=== PATIENT | male | born 2000 | race Caucasian/White ===

== ENCOUNTER 2018-11-28 15:37 | Emergency (ER) | payer SELFPAY ==
[~2018-11-28] VITALS: Ht 172.7 cm; Wt 79.8 kg
[2018-11-28 15:45] VITALS: Ht 172.7 cm; Wt 79.8 kg
[2018-11-28] MEDS ORDERED: HYDROCODONE/APAP (5/325) TAB PO ONE (16:30)
[2018-11-28] MEDS ORDERED: DIPHTH/TET/ACEL PERTUSS (ADULT) 0.5 ML VIAL IM* ONE (16:30)
[2018-11-28] MEDS ORDERED: IBUP-1542 PO (18:04)
[2018-11-28] MEDS ORDERED: CEPH-443 PO (18:04)
[2018-11-28 18:52] VITALS: BP 120/65; PULSE 96; RESP 20
--- NOTE | 2018-11-28 19:09 | ERD ---
ER Documentation Chief Complaint Chief Complaint L thumb laceration at work; bleeding noted and controlled HPI 16-year-old male patient with no significant past medical history presents to ED complaining of a left thumb laceration that occurred at work. Reports that he is right-handed. States that he was working with a skill saw. Denies any fever, chills, nausea, vomiting, sensation, loss of range of motion. Denies any other injuries. ROS All systems reviewed and are negative except as per history of present illness. Medications Home Meds Active Scripts Ibuprofen* (Motrin*) 600 Mg Tab, 600 MG PO Q6, #30 TAB Prov:CARL DINH PA-C 11/28/18 Cephalexin* (Keflex*) 500 Mg Capsule, 500 MG PO QID for 7 Days, CAP Prov:CARL DINH PA-C 11/28/18 Allergies Allergies: Coded Allergies: No Known Allergy (Unverified , 11/28/18) PMhx/Soc Medical and Surgical Hx: pt denies Medical Hx, pt denies Surgical Hx Hx Alcohol Use: No Hx Substance Use: No Hx Tobacco Use: Yes Smoking Status: Current every day smoker FmHx Family History: No diabetes, No coronary disease Physical Exam Vitals Vital Signs Date Temp Pulse Resp B/P (MAP) Pulse Ox O2 O2 Flow FiO2 Time Delivery Rate 11/28/18 98.1 96 20 120/65 98 Room Air 18:52 (83) 11/28/18 98.5 63 20 133/79 97 15:45 (97) Physical Exam Const: Hcs-yrd-rantayihu, well-nourished. In no acute distress. Head: Atraumatic, normocephalic Eyes: Normal Conjunctiva without injection ENT: Normal external ear, nose and mouth. Neck: Full range of motion. No meningismus. Resp: Clear to auscultation bilaterally. No wheezing, rhonchi, rales, or crackles. No accessory muscle use. No retractions. Cardio: Regular rate and rhythm, no murmurs Skin: No petechiae or rashes Back: No midline tenderness. No CVA tenderness. Ext: No cyanosis, or edema. Cap refill less than 2 seconds. Distal pulses intact bilaterally. Superficial laceration irregularly shaped noted of the IP joint of patient's left thumb. Full range of motion of the DIP, PIP, MCP joints bilaterally. Minimal bleeding noted. No visualization of any foreign bodies or tendons. Neur: Awake and alert. Normal gait and coordination. Muscle strength 5/5. Sensation intact bilaterally. Psych: Normal Mood and Affect Results 24 hrs Current Medications Medications Dose Sig/Ashu Start Time Status Last (Trade) Ordered Route PRN Stop Time Admin Dose Reason Admin 1 tab ONCE ONCE 11/28/18 DC 11/28/18 Acetaminophen PO 16:30 16:36 / 11/28/18 16:31 Hydrocodone Bitart ([place] (5/325)) Diphtheria/ 0.5 ml ONCE ONCE 11/28/18 DC 11/28/18 Tetanus/Acell IM* 16:30 16:37 Pertussis 11/28/18 16:31 (Adacel) Procedures/MDM 16-year-old male patient with no significant a past medical history presents to ED complaining of a left thumb laceration. Patient is afebrile and nontoxic- appearing. Tdap is updated here in the ED peer patient was given [place] 5-325 mg here in the ED with improvement of his pain. Patient gave consent to perform laceration repair. Laceration Repair by me: Anesthesia: None Location: [Left] Tendon/Joint/Nerves: No injury Foreign body: None detected after copious irrigation and exploration Technique: None Complexity: No subcutaneous sutures/mucosal repair/edge excision Post Closure Length: [3] cm Patient's bleeding was easily controlled in the department and there is no indication of anemia. Patient is neurovascularly intact. No evidence of compartment syndrome, neurologic injury, vascular injury, open joint, tendon laceration, or foreign body. Patient is appropriate for outpatient follow up. 48 hour wound check. Scar minimization instructions given. Instructed patient to return for suture removal in 7-10 days. Keflex was prescribed to patient for infection prevention. Instructed patient to return to the ED sooner for any worsening symptoms. Follow up with primary care physician in 1-2 days. Patient's questions were answered. Patient understood and agreed with discharge plan. Departure Diagnosis: Primary Impression: Thumb laceration Encounter type: initial encounter Damage to nail status: unspecified Foreign body presence: unspecified Laterality: left Qualified Codes: S61.012A - Laceration without foreign body of left thumb without damage to nail, initial encounter Condition: Stable Patient Instructions: Laceration, Hand Referrals: [facility] YOU HAVE RECEIVED A MEDICAL SCREENING EXAM AND THE RESULTS INDICATE THAT YOU DO NOT HAVE A CONDITION THAT REQUIRES URGENT TREATMENT IN THE EMERGENCY DEPARTMENT. FURTHER EVALUATION AND TREATMENT OF YOUR CONDITION CAN WAIT UNTIL YOU ARE SEEN IN YOUR DOCTORS OFFICE WITHIN THE NEXT 1-2 DAYS. IT IS YOUR RESPONSIBILITY TO MAKE AN APPOINTMENT FOR FOLOW-UP CARE. IF YOU HAVE A PRIMARY DOCTOR --you should call your primary doctor and schedule an appointment IF YOU DO NOT HAVE A PRIMARY DOCTOR YOU CAN CALL OUR PHYSICIAN REFERRAL HOTLINE AT IF YOU CAN NOT AFFORD TO SEE A PHYSICIAN YOU CAN CHOSE FROM THE FOLLOWING [facility] [address] [facility] [address] [facility] [address] [facility] [address] [facility] [facility] [address] [facility]. [facility] [address] [facility] YOU HAVE RECEIVED A MEDICAL SCREENING EXAM AND THE RESULTS INDICATE THAT YOU DO NOT HAVE A CONDITION THAT REQUIRES URGENT TREATMENT IN THE EMERGENCY DEPARTMENT. FURTHER EVALUATION AND TREATMENT OF YOUR CONDITION CAN WAIT UNTIL YOU ARE SEEN IN YOUR DOCTORS OFFICE WITHIN THE NEXT 1-2 DAYS. IT IS YOUR RESPONSIBILITY TO MAKE AN APPOINTMENT FOR FOLOW-UP CARE. IF YOU HAVE A PRIMARY DOCTOR --you should call your primary doctor and schedule and appointment IF YOU DO NOT HAVE A PRIMARY DOCTOR YOU CAN CALL OUR PHYSICIAN REFERRAL HOTLINE AT . IF YOU CAN NOT AFFORD TO SEE A PHYSICIAN YOU CAN CHOSE FROM THE FOLLOWING [facility] INSTITUTIONS: [facility] [address] [place] [address] [facility] [address] [place] [address] [facility] + [facility] [address] [place] [address] [facility] URGENT CARE/SPECIALTIES Additional Instructions: Llame al doctor MAANA y anum eloisa BRIDGET PARA DENTRO DE 2-3 PALMER.Dgale a la secretaria que nosotros le instruimos hacer esta bridget.Avise o llame si bernal condicin se empeora antes de la bridget. Regresa aqui si peor o no mejor. CARL DINH PA-C Nov 28, 2018 19:09
== END 2018-11-28 18:52 | disposition home or self-care (01) ==
LOC: FTE 15:37
DX: S61.012A Laceration without foreign body of left thumb without damage to nail, initial encounter (principal); F17.210 Nicotine dependence, cigarettes, uncomplicated; W29.3XXA Contact with powered garden and outdoor hand tools and machinery, initial encounter; Y92.89 Other specified places as the place of occurrence of the external cause; Z23 Encounter for immunization
CPT/HCPCS: 73140; 90471; 90715